=== PATIENT | female | born 1950 | race Caucasian/White ===

== ENCOUNTER 2024-02-01 12:46 | Emergency (ER) | payer MEDICARE ==
[~2024-02-01] VITALS: Ht 165.1 cm; Wt 90.3 kg
[2024-02-01 13:14] VITALS: BP 172/74; PULSE 83; RESP 18; TEMP 98.2; O2SAT 96
[2024-02-01] MEDS ORDERED: SODIUM CHLORIDE IRR BOTTLE IR ONE (13:20)
[2024-02-01] MEDS ORDERED: BOOSTRIX IM ONE (13:20)
[2024-02-01] MEDS: BOOSTRIX IM ONE (13:25)
[2024-02-01] MEDS ORDERED: AUGMENTIN 875MG PO SCH (13:30)
[2024-02-01] MEDS ORDERED: AMOX1TAB12 PO (14:15)
[2024-02-01 14:26] VITALS: BP 154/78; PULSE 75; RESP 18; TEMP 98.2; O2SAT 96
== END 2024-02-01 14:30 | disposition home or self-care (01) ==
LOC: ER 12:46
DX: S61.216A Laceration without foreign body of right little finger without damage to nail, initial encounter (principal); W54.0XXA Bitten by dog, initial encounter; Y93.89 Activity, other specified; Y92.89 Other specified places as the place of occurrence of the external cause; Y99.8 Other external cause status
CPT/HCPCS: 99283; 90471; 12001; 90715; A4649; A4217

== ENCOUNTER → 2024-10-16 | Outpatient (CLI) ==
[~2024-10-16] MED LIST: AMOX1TAB12 PO
== END | disposition home or self-care (01) ==
LOC: RAD 12:03
PROVIDERS: ATTEND Nurse Practitioner Family
DX: M17.11 Unilateral primary osteoarthritis, right knee (principal); M25.761 Osteophyte, right knee; M25.561 Pain in right knee
CPT/HCPCS: 73560